=== PATIENT | female | born 1995 | race Caucasian/White ===

== ENCOUNTER 2023-07-09 14:07 | Emergency (ER) | payer BC, SELFPAY ==
[2023-07-09 14:12] VITALS: BP 151/80; PULSE 120; RESP 20; TEMP 37.9; O2SAT 100
--- NOTE | 2023-07-09 14:29 | ED.URI ---
HPI - URI/Sore Throat General Chief Complaint: Upper Respiratory Infection Stated Complaint: cough/dizzy/chills Time Seen by Provider: 07/09/23 14:20 Source: patient and RN notes reviewed Mode of arrival: ambulatory Limitations: no limitations History of Present Illness HPI Narrative: 27-year-old female presented for complaint of cough, sore throat, nasal congestion, diarrhea, and fever. Onset 2 days. Endorses boyfriend positive for influenza today. Taking [id number] medication for symptoms. Denies shortness of breath, wheezing, or lethargy. MD elicited complaint: cough Related Data Home Medications Medication Instructions Recorded Confirmed No Home Medications 07/09/23 07/09/23 Allergies Allergy/AdvReac Type Severity Reaction Status Date / Time No Known Allergies Allergy Verified 07/09/23 14:19 Review of Systems Review of Systems: CONSTITUTIONAL: Endorses malaise, chills, sweats, fever EYES: Denies visual changes, redness, or discharge ENT: Reports rhinorrhea, congestion, denies otalgia, sore throat CARDIOVASCULAR: Denies chest pain, palpitations, edema RESPIRATORY: Reports cough, post nasal drainage. Denies dyspnea GASTROINTESTINAL: Denies abdominal pain, nausea, vomiting, reports diarrhea SKIN: Denies rash or itching MUSCULOSKELETAL: Endorses myalgia Exam Narrative: GENERAL: mildly Ill-appearing, nontoxic no acute distress. EYES: PERRLA, conjunctivae clear ENT: Mucous membranes moist. TMs pearly ghotra with dull light reflex bilaterally; no tragal tenderness. Oropharynx not erythematous without lesions or exudate, no drooling, no hoarseness, no trismus, uvula midline. No tripod positioning, muffled voice, soft palate or pharyngeal wall bulging NECK: Supple. No lymphadenopathy CHEST: Clear to auscultation, breath sounds equal. No wheezing, rhonchi, rales, or stridor. No respiratory distress, speaks in full sentences. HEART: Regular rate and rhythm. No murmur heard. SKIN: Warm, dry, no rash. NEURO: Alert and oriented x3. PSYCH: Normal mood and affect Course Course Emergency Course: Patient is aware of diagnosis, understands and agrees to treatment plan. Anticipatory guidance given. Patient agrees to follow-up as directed and is aware of reasons to seek care at the emergency department. Portions of this record may have been created with voice recognition software Level of Care: Express Care Visit Vital Signs Vital signs: Vital Signs Temperature 100.3 F H 07/09/23 14:12 Pulse Rate 120 H 07/09/23 14:12 Respiratory Rate 20 07/09/23 14:12 Blood Pressure 151/80 H 07/09/23 14:12 Pulse Oximetry 100 07/09/23 14:12 Oxygen Delivery Room Air 07/09/23 14:12 Temperature 100.3 F H 07/09/23 14:12 Pulse Rate 120 H 07/09/23 14:12 Respiratory Rate 20 07/09/23 14:12 Blood Pressure 151/80 H 07/09/23 14:12 Pulse Oximetry 100 07/09/23 14:12 Oxygen Delivery Room Air 07/09/23 14:12 reviewed MDM - URI/Sore Throat MDM Narrative Medical decision making narrative: Negative influenza. Results reviewed with patient. Discussed physical exam findings. Advised supportive measures and signs/symptoms to go to the ER. Pt is appropriate for outpt treatment and f/u. Differential Diagnosis Differential diagnosis: Likely upper respiratory infection, sinusitis and viral infection Discharge Plan Discharge Clinical Impression: Viral infection Patient Disposition: Home, Self-Care Condition: Stable Instructions: Influenza (ED) Additional Instructions: Influenza negative You should avoid crowds until you are fever free for 24 hours without the use of fever reducing medications, or the symptoms are improved Rest. Drink plenty of fluids. Tylenol 1000mg every 8 hours as needed for pain/fever Recommend Flonase spray and Zyrtec (or Claritin/Kellee) for sinus pressure/congestion over the counter Cough syrup may cause drowsiness; avoid driving or take it at night
== END 2023-07-09 14:38 | disposition home or self-care (01) ==
PROVIDERS: Emergency Provider Nurse Practitioner Family
DX: B34.9 Viral infection, unspecified (principal)
CPT/HCPCS: 87804; 99213; G0463